=== PATIENT | female | born 1985 | race Caucasian/White ===

== ENCOUNTER → 2016-10-16 | Outpatient (CLI) | payer OTHER ==
[~2016-10-16] MED LIST: AMOXICILLIN500 M2 PO; AMOXICILLIN500 MG PO; ANAPROX DS550 MG PO; AUGMENTIN 875 M1 TAB PO; AUGMENTIN 875-875 MG PO; AUGMENTIN 875875 MG PO; BCP PO; CLARITIN10 MG PO; KEFLEX500 M1 PO; MOTRIN800 MG PO; NAPROSYN500 MG PO; NKHM; PEN-VEE K500 MG PO; PRENATAL1 TA3 PO; TRAMADOL HCL50 MG PO; ULTRAM50 MG PO; WYMOX500 MG PO; ZANTAC150 MG PO; ZITHROMAX Z PA250 MG PO; ZOFRAN4 MG PO
== END | disposition home or self-care (01) ==
LOC: LAB 11:04
DX: Z34.01 Encounter for supervision of normal first pregnancy, first trimester (principal); Z3A.12 12 weeks gestation of pregnancy

== ENCOUNTER → 2016-10-19 | Outpatient (CLI) | payer OTHER | END | disposition home or self-care (01) | LOC: LAB 07:34 | DX: Z34.82 Encounter for supervision of other normal pregnancy, second trimester (principal); Z3A.14 14 weeks gestation of pregnancy ==

== ENCOUNTER 2018-11-21 10:50 | Emergency (ER) | payer OTHER ==
[~2018-11-21] VITALS: Wt 90.3 kg
[2018-11-21 10:51] VITALS: BP 122/66
[2018-11-21] MEDS ORDERED: PREDNISONE10 MG PO (11:08)
[2018-11-21] MEDS ORDERED: FLONASE ALLERG9.9 ML NAS (11:08)
[2018-11-21] MEDS ORDERED: CLARITIN10 MG PO (11:08)
[2018-12-19] MEDS ORDERED: ZYRTEC10 MG PO (15:30)
[2018-12-19] MEDS ORDERED: FLONASE ALLERG9.9 ML NAS (15:30)
[2018-12-19] MEDS ORDERED: PREDNISONE20 M1 PO (15:30)
[2018-12-19] MEDS ORDERED: AUGMENTIN 875875 MG PO (15:30)
[2019-02-15] MEDS ORDERED: AUGMENTIN 875875 MG PO (10:46)
== END 2018-11-21 11:46 | disposition home or self-care (01) ==
LOC: ED 10:50
DX: B34.9 Viral infection, unspecified (principal); R03.0 Elevated blood-pressure reading, without diagnosis of hypertension; Z79.899 Other long term (current) drug therapy

== ENCOUNTER → 2021-02-08 | Outpatient (CLI) | payer OTHER ==
[~2021-02-08] MED LIST changes: +FLONASE ALLERG9.9 ML NAS; +PREDNISONE10 MG PO; +PREDNISONE20 M1 PO; +ZYRTEC10 MG PO
[2021-02-08 10:49] LABS: BASO % 0.5 % (0.0-1.0); EOS # 0.1 10*3/uL (0.0-0.4); EOS % 2.1 % (1.0-4.0); HEMATOCRIT 40.9 % (37.0-47.0); LYMPH # 1.9 10*3/uL (1.3-4.4); LYMPH % 28.6 % (27.0-41.0); MEAN CELL VOLUME 90.1 fl (81.0-99.0); MEAN CORPUSCULAR HGB 30.6 pg (27.0-31.0); MEAN PLATELET VOLUME 10.8 fl (9.6-12.3); MONO # 0.4 10*3/uL (0.1-1.0); MONO % 5.7 % (3.0-9.0); NEUT # 4.1 10*3/uL (2.3-7.9); NEUT % 62.8 % (47.0-73.0); PLATELET COUNT AUTOMATED 278 10*3/uL (130-400); RED BLOOD COUNT 4.54 10*6/uL (4.10-5.10); RED CELL DISTRI WIDTH 12.7 % (0-14.5); RETICULOCYTE % 1.28 % (0.50-2.50); WHITE BLOOD COUNT 6.5 10*3/uL (4.8-10.8)
[2021-02-08 10:51] LABS: BILIRUBIN Negative (Negative); BLOOD Trace-Lysed (Negative); CLARITY Cloudy (Clear); COLOR Yellow (Yellow); GLUCOSE Negative (Negative); KETONE Negative (Negative); LEUKO ESTERASE 1+ (Negative); NITRITE Negative (Negative); SPECIFIC GRAVITY >= 1.030 (1.001-1.030)
[2021-02-08 11:01] LABS: BACTERIA TRACE; EPITHELIAL CELLS 16-20; RBC 0-2 rbc/hpf (0-2)
[2021-02-08 11:15] LABS: ALBUMIN 3.7 gm/dl (3.1-4.5); ALKALINE PHOSPHATASE 51 U/L (45-117); BUN 20 mg/dl (7-24); CHLORIDE 109 mmol/L (98-107); CHOLESTEROL 208 mg/dL (<200); CREATININE 0.89 mg/dL (0.55-1.02); GAMMA GLUTAMYL TRANSPEPTIDASE 15 U/L (5-55); HDL CHOLESTEROL 51 mg/dl (40-60); IRON 101 ug/dL (50-170); LDL CHOLESTEROL 110 mg/dL (9-159); LIPASE 211 U/L (73-393); POTASSIUM 3.6 mmol/L (3.5-5.1); SGOT/AST 11 IU/L (3-35); SGPT/ALT 20 U/L (12-78); SODIUM 140 mmol/L (136-145); TOTAL IRON BINDING CAPACITY 327 ug/dl (250-450); TOTAL PROTEIN 7.3 gm/dL (6.4-8.2); TRIGLYCERIDES 234 mg/dl (<150); URIC ACID 5.4 mg/dL (2.6-6.0); VLDL CHOLESTEROL 47 mg/dL (6-40)
[2021-02-08 11:24] LABS: FERRITIN 45.2 ng/mL (10.0-291.0)
[2021-02-08 11:26] LABS: BETA-HCG, QUANT < 1.0 mIU/mL (1-3)
[2021-02-09 05:07] LABS: RHEUMATOID ARTHRITIS FACTOR <10.0 IU/mL (0.0-13.9)
[2021-02-09 08:08] LABS: H PYLORI IGG AB 0.15 (0.00-0.79)
[2021-02-09 13:06] LABS: H.PYLORI IGM <9.0 units (0.0-8.9)
[2021-02-09 14:08] LABS: H.PYLORI IgA 23.2 units (0.0-8.9)
[2021-02-09 16:08] LABS: ANTI-DSDNA ANTIBODIES 38 IU/mL (0-9)
== END | disposition home or self-care (01) ==
LOC: LAB 10:05
PROVIDERS: ATTEND Family Medicine
DX: E55.9 Vitamin D deficiency, unspecified (principal); R53.83 Other fatigue; R79.89 Other specified abnormal findings of blood chemistry

== ENCOUNTER → 2021-02-21 | Outpatient (CLI) | payer OTHER | END | disposition home or self-care (01) | LOC: US 06:56 | PROVIDERS: ATTEND Family Medicine | DX: K76.0 Fatty (change of) liver, not elsewhere classified (principal) ==

== ENCOUNTER 2021-06-30 16:22 | Emergency (ER) | payer OTHER ==
[~2021-06-30] VITALS: Ht 162.5 cm; Wt 104.3 kg
[2021-06-30 18:25] VITALS: BP 99/56
[2021-06-30 20:22] LABS: BILIRUBIN 1+ (Negative); BLOOD Negative (Negative); CLARITY Cloudy (Clear); COLOR Dark Yellow (Yellow); GLUCOSE Negative (Negative); KETONE Trace (Negative); LEUKO ESTERASE Trace (Negative); NITRITE Negative (Negative); SPECIFIC GRAVITY >= 1.030 (1.001-1.030)
[2021-06-30 20:33] LABS: BACTERIA 2+; EPITHELIAL CELLS 16-20; MUCOUS 3+
[2021-06-30] MEDS ORDERED: MACROBID100 M1 PO (21:08)
== END 2021-06-30 21:22 | disposition home or self-care (01) ==
LOC: ED 16:22
PROVIDERS: Nurse Practitioner Family
DX: U07.1 COVID-19 (principal); N39.0 Urinary tract infection, site not specified; Z79.899 Other long term (current) drug therapy